=== PATIENT | female | born 1980 ===

== ENCOUNTER 2020-02-16 23:34 | Emergency (ER) | payer OTHER, SELFPAY ==
[2020-02-16 23:42] VITALS: BP 147/86; PULSE 96; RESP 16; TEMP 36.8; O2SAT 98; BMI 24.7
--- NOTE | 2020-02-16 23:52 | XR_ITS ---
WS: [id number] EXAM: AP CHEST: PORTABLE UPRIGHT DATE OF EXAM: 02/17/2020, 0021 hours COMPARISON: NONE HISTORY: Patient is 39 years old with chest pain, cough, fever at home. FINDINGS: The cardiac silhouette is normal in size. The mediastinal contours are normal. The pulmonary vas cularity is normal. The lungs are clear of infiltrate. There is no effusion or pneumothorax. No ac milton bony abnormality is seen. XR/XR chest 1V portable [id number] IMPRESSION: No acute pulmonary disease.
--- NOTE | 2020-02-16 23:53 | ECG_ITS ---
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 Measurements Intervals Termo Rate: 81 P: 79 SD: 152 QRS: 81 QRSD: 76 T: 50 QT: 340 QTc: 397 Interpretive Statements SINUS RHYTHM No previous ECG available for comparison Electronically Signed On 02-17-2020 18:32:13 CDT by hCetan Suazo M.D. [id number]
--- NOTE | 2020-02-17 00:11 | W.ED.CHESTPA ---
HPI - Chest Pain General: Chief Complaint: Chest Pain Stated Complaint: COIVID SYMPTOMS Time Seen by Provider: 02/16/20 23:52 History of Present Illness: HPI narrative: Patient states that she has been around positive COVID coworkers. She has been tested for times been negative but says she has had some muscle aches cramps some tightness in her chest when her muscles ache. Says she is running fever at home. She denies any loss of taste or smell. She is a smoker. She denies a cough shortness of breath. MD complaint: chest discomfort Prior episodes: No Onset: other Pain location: lateral Pain radiation: none Severity: mild Quality: tightness Context: other (COVID exposure) Associated symptoms: Reports fever(s) and other (Muscle aches); Deny abdominal pain, dyspnea, nausea or vomiting Treatment prior to arrival: none Review of Systems Const: Reports: fever(s) and body aches Eyes: Denies: change in vision or blurry vision ENMT: Denies: throat pain or nasal congestion Card: Reports: chest pain; Denies: dyspnea on exertion Resp: Denies: dyspnea, productive cough or non-productive cough GI: Denies: abdominal pain, nausea or vomiting Musc: Denies: extremity pain Skin/Breast: Denies: rash Neuro: Denies: headache(s) Psych: Denies: anxiety or depression Gabino/Lymph: Denies: easy bruising Physical Exam Const: COMMON NORMALS: no acute distress, average body habitus and patient oriented x3 HENMT: COMMON NORMALS: normocephalic HEAD & SCALP: normal to inspection and normocephalic FACE & SINUS: normal facial exam Eye: COMMON NORMALS: conjunctivae normal GENERAL EYE: appearance normal, both eyes and all related structures CONJUNCTIVA: Yes conjunctivae normal Neck/C-Spine: COMMON NORMALS: no JVD Chest: COMMONS NORMALS: normal inspection of the chest Resp: COMMON NORMALS: normal respiratory effort and clear to auscultation bilaterally AUSCULTATION: clear to auscultation bilaterally Cardio: COMMON NORMALS: no JVD, regular rate and regular rhythm RATE: regular rate RHYTHM: regular rhythm GI: COMMON NORMALS: Normal to inspection, nondistended, normoactive bowel sounds present Extremity: COMMON NORMALS: normal to inspection and full ROM Neuro: COMMON NORMALS: patient oriented x3 Course Vital Signs: Vital signs: Vital Signs Temperature 98.3 F 02/16/20 23:42 Pulse Rate 96 02/16/20 23:42 Respiratory Rate 16 02/16/20 23:42 Blood Pressure 147/86 02/16/20 23:42 Pulse Oximetry 98 02/16/20 23:42 Coding Level of Care Code ED Community Education Specialist for Ciro Teixeira
[2020-02-17 00:28] VITALS: BP 118/78; PULSE 80; RESP 16; O2SAT 98
[2020-02-17 00:36] LABS: Basophils # 0.1 10^3/uL (0.0-0.1); Eosinophils # 0.7 10^3/uL (0.0-0.8); Eosinophils % 9.1 %; Hematocrit 40.7 % (37.0-47.0); Hemoglobin 13.6 g/dL (11.5-15.3); Lymphocytes # 2.5 10^3/uL (0.8-4.8); Lymphocytes % 31.3 %; Mean Corpuscular HGB Conc 33.4 g/dL (30.0-36.0); Mean Corpuscular Hemoglobin 31.5 pg (28.0-34.0); Mean Corpuscular Volume 94.2 fL (81-99); Mean Platelet Volume 9.9 fL (7.4-10.4); Monocytes # 0.7 10^3/uL (0.2-0.9); Monocytes % 9.3 %; Neutrophils # 3.89 10^3/uL (1.8-7.7); Nucleated Red Blood Cells % 0 %; Platelet Count 240 10^3/cmm (130-400); Red Blood Count 4.32 10^6/uL (4.1-5.3); Red Cell Distribution Width 11.6 % (12.1-15.1); White Blood Count 7.9 10^3/uL (4.0-10.0)
[2020-02-17 00:57] LABS: Alanine Aminotransferase 12 U/L (0-33); Albumin Level 4.6 g/dL (3.5-5.2); Alkaline Phosphatase 60 IU/L (35-105); Anion Gap 12.9 (5-19); Aspartate Amino Transferase 13 U/L (0-32); Blood Urea Nitrogen 17 mg/dL (6-20); C Reactive Protein 0.3 mg/L (0.0-4.9); Calcium 8.6 mg/dL (8.5-10.5); Carbon Dioxide 23 mmol/L (22-29); Chloride 104 mmol/L (98-107); Globulin 2.6 g/dL (1.3-4.6); Glomerular Filtration Rate 92.7 mL/min (90-130); Glucose 94 mg/dL (65-115); Osmolality Calculated 278 mOsm/kg (285-295); Potassium 3.9 mmol/L (3.5-5.1); Sodium 136 mmol/L (136-145); Total Bilirubin 0.3 mg/dL (0.15-1.2); Total Protein 7.2 g/dL (6.6-8.7)
[2020-02-17 00:58] LABS: Lactic Sepsis W/Reflex 0.7 mmol/L (0.5-2.2)
[2020-02-17 00:59] LABS: Troponin(5th) Baseline 6 ng/L (0-10)
[2020-02-17 01:16] LABS: SARS Covid-2 Antigen Negative (Negative)
[2020-02-17 01:27] LABS: Influenza A by IFA Negative (Negative); Influenza B by IFA Negative (Negative)
[2020-02-17 01:38] VITALS: BP 126/74; PULSE 64; RESP 18; O2SAT 99
== END 2020-02-17 01:39 | disposition home or self-care (01) ==
PROVIDERS: Emergency Provider Nurse Practitioner Family; PCP Family Medicine
DX: R07.9 Chest pain, unspecified (principal); R50.9 Fever, unspecified
CPT/HCPCS: 12345; 71045; 80053; 83605; 84484; 85025; 86140; 87040; 87426; 87804; 93005; 99283; 99284

== ENCOUNTER → 2022-05-10 16:20 | Outpatient (BNVA) | payer SELFPAY | PROVIDERS: PCP Family Medicine; Visit Provider Registered Nurse Neonatal Intensive Care | DX: N39.0 Urinary tract infection, site not specified (principal) | CPT/HCPCS: 81000; 87491; 87591; 87661 ==

== ENCOUNTER 2024-03-09 12:25 | Inpatient (IN) | payer SELFPAY ==
[2024-03-09 12:28] VITALS: BP 136/98; PULSE 87; RESP 16; TEMP 36.8; O2SAT 100; BMI 25.0
--- NOTE | 2024-03-09 12:56 | PC.PHAR ---
pt is from [facility]
--- NOTE | 2024-03-09 13:03 | ED.C_ITS ---
HPI - Psych 2 General: Chief Complaint: Psychiatric Symptoms Stated Complaint: SI Time Seen by Provider: 03/09/24 12:28 Source: patient Mode of arrival: ambulatory Limitations: no limitations History of Present Illness: Patient is a 43-year-old female presents to ED today with a complaint of depression and suicidal ideations. According to triage note, patient has had 10 mg of hydrocodone, methamphetamine, marijuana, and for alcohol shooters today. She reportedly went to [facility] to check herself in for drug rehab and they turned her away because she was actively under the influence. They did do some type of suicide assessment screening and when she tested positive, they recommended she come to the emergency department. Patient states she has a longstanding history of depression and suicidal ideations. She does feel like her suicide thoughts are worsening. She has no specific plan. She does report a previous suicide attempt when she was much younger. MD complaint: suicidal ideation and feels depressed Onset (ago): week(s) Duration: constant History of same: Yes Relieving factors: none Exacerbating factors: drug use Context: recent drug abuse Associated psychiatric symptoms: depression and suicidal ideation Associated symptoms: Reports depression and suicidal ideation; Deny auditory hallucinations, visual hallucinations or homicidal ideation Treatments prior to arrival: none If self harm: admits thoughts of self harm Related Data Home Medications Medication Instructions Recorded Confirmed No Known Home Medications 03/09/24 03/09/24 Allergies Allergy/AdvReac Type Severity Reaction Status Date / Time No Known Allergies Allergy Verified 05/10/22 15:45 Review of Systems 2 Const: Denies: fever(s) or chills Card: Denies: chest pain, palpitations, lightheadedness or syncope Resp: Denies: dyspnea GI: Denies: abdominal pain, nausea, vomiting or diarrhea Skin/Breast: Denies: rash Neuro: Denies: headache(s) Psych: Reports: anxiety, depression and suicidal ideation; Denies: visual hallucinations, auditory hallucinations or homicidal ideation PFS ED 2 PFSH: Social History Smoking and tobacco/nicotine status: current every day tobacco/nicotine user Physical Exam 2 Const: COMMON NORMALS: patient oriented x3, no limitations, alert and well nourished GENERAL APPEARANCE: cooperative, well kempt and disheveled Resp: COMMON NORMALS: normal respiratory effort and clear to auscultation bilaterally AUSCULTATION: clear to auscultation bilaterally Cardio: COMMON NORMALS: regular rate and regular rhythm RATE: regular rate RHYTHM: regular rhythm Extremity: GENERAL: Yes normal exam except as noted Neuro: COMMON NORMALS: patient oriented x3 SENSORIUM/ORIENTATION: Yes alert Psych: COMMON NORMALS: Normal thought process present, cooperative, normal affect, speech normal, activity/motor behavior normal, denies hallucinations and denies homicidal ideation APPEARANCE: Yes grossly normal and Yes well kempt ATTITUDE: Yes calm ACTIVITY/MOTOR BEHAVIOR: Yes appropriate eye contact and No psychomotor agitation SPEECH: Yes normal speech MOOD & AFFECT: Yes depressed mood THOUGHT PROCESS: Normal thought process present THOUGHT CONTENT: Yes Normal thought content present ATTENTION/CONCENTRATION: Yes attention grossly intact and Yes concentration grossly intact M YAIMA/COGNITION: Yes memory grossly intact and Yes cognition grossly intact I NSIGHT: Fair insight present (Psych) JUDGEMENT: Fair judgement present (Psych) Course 2 Consultations: Consultation #1: Dr. Trujillo-accepts admission to NPU Vital Signs: Vital signs: Vital Signs Temperature 98.2 F 03/09/24 12:28 Pulse Rate 87 03/09/24 12:28 Respiratory Rate 16 03/09/24 12:28 Blood Pressure 136/98 03/09/24 12:28 Pulse Oximetry 100 03/09/24 12:28 Oxygen Delivery Me thod Room Air 03/09/24 12:28 [facility] - Psych Medical Decision Making Patient will be admitted to NPU to Dr. Trujillo for treatment of her depression and suicidal ideations as well as polysubstance abuse. Differential Diagnosis Likely suicidal ideation and depression Medical Records I reviewed the patient's medical records. Lab Data I reviewed the patient's lab results. 03/09/24 13:18 03/09/24 13:18 Laboratory Results WBC 5.10 10^3/uL (3.29-11.43) 03/09/24 13:18 RBC 4.53 10^6/uL (3.85-5.65) 03/09/24 13:18 Hgb 14.10 g/dL (11.27-16.99) 03/09/24 13:18 Hct 42.8 % (36-47) 03/09/24 13:18 MCV 94.5 fl (85-98) 03/09/24 13:18 MCH 31.1 pg (27-33) 03/09/24 13:18 MCHC 32.9 g/dL (30-55) 03/09/24 13:18 RDW 12.1 % (12.1-15.1) 03/09/24 13:18 Plt Count 258 10^3/cmm (157-399) 03/09/24 13:18 MPV 10.1 fL (7.4-10.4) 03/09/24 13:18 Neut % (Auto) 49.1 % 03/09/24 13:18 Lymph % (Auto) 30.8 % 03/09/24 13:18 Sebastian % (Auto) 11.2 % 03/09/24 13:18 Eos % (Auto) 7.3 % 03/09/24 13:18 Baso % (Auto) 1.2 % 03/09/24 13:18 Neut # (Auto) 2.51 10^3/uL (1.8-7.7) 03/09/24 13:18 Lymph # (Auto) 1.6 10^3/uL (0.8-4.8) 03/09/24 13:18 Sebastian # (Auto) 0.6 10^3/uL (0.2-0.9) 03/09/24 13:18 Eos # (Auto) 0.4 10^3/uL (0.0-0.8) 03/09/24 13:18 Baso # (Auto) 0.1 10^3/uL (0.0-0.1) 03/09/24 13:18 Nucleated RBC % (auto) 0 % 03/09/24 13:18 Nucleated RBCs # 0.0 /100WBC 03/09/24 13:18 Sodium 142 mmol/L (136-145) 03/09/24 13:18 Potassium 4.4 mmol/L (3.5-5.1) 03/09/24 13:18 Chloride 103 mmol/L (98-107) 03/09/24 13:18 Carbon Dioxide 29 mmol/L (22-29) 03/09/24 13:18 Anion Gap 14.4 (5-19) 03/09/24 13:18 BUN 14 mg/dL (6-20) 03/09/24 13:18 Creatinine 0.8 mg/dL (0.5-0.9) 03/09/24 13:18 GFR Calculation 77.9 mL/min (90-130) L 03/09/24 13:18 Glucose 99 mg/dL (65-115) 03/09/24 13:18 Calculated Osmolality 295 mOsm/kg (285-295) 03/09/24 13:18 Calcium 9.3 mg/dL (8.5-10.5) 03/09/24 13:18 Total Bilirubin 0.3 mg/dL (0.15-1.2) 03/09/24 13:18 AST 23 U/L (0-32) 03/09/24 13:18 ALT 16 U/L (0-33) 03/09/24 13:18 Alkaline Phosphatase 84 U/L (35-105) 03/09/24 13:18 Total Protein 7.1 g/dL (6.6-8.7) 03/09/24 13:18 Albumin 4.5 g/dL (3.5-5.2) 03/09/24 13:18 Globulin 2.6 g/dL (1.3-4.6) 03/09/24 13:18 HCG, Qual Negative (Negative) 03/09/24 13:18 Salicylates 1.3 mg/dL (3-10) L 03/09/24 13:18 Urine Opiates Screen Positive ng/mL (Negative) H 03/09/24 12:53 Acetaminophen < 5.0 ug/mL (10-30) L 03/09/24 13:18 Ur Barbiturates Screen Negative ng/mL (Negative) 03/09/24 12:53 Ur Phencyclidine Scrn Negative ng/mL (Negative) 03/09/24 12:53 Ur Amphetamines Screen Positive ng/mL (Negative) H 03/09/24 12:53 U Benzodiazepines Scrn Negative ng/mL (Negative) 03/09/24 12:53 Urine Cocaine Screen Negative ng/mL (Negative) 03/09/24 12:53 U Marijuana (THC) Screen Positive ng/mL (Negative) H 03/09/24 12:53 Ethyl Alcohol < 10 mg/dL (0-10) 03/09/24 13:18 No radiology studies performed this visit Discharge Plan Discharge Patient Disposition: Admitted As Inpatient Clinical Impression: Suicidal ideation, Polysubstance abuse Condition: Stable Coding Level of Care Code ED Brim And Crown Presser for Ciro Teixeira
[2024-03-09 13:26] LABS: Amphetamines Screen Urine Positive (Negative); Barbiturates Screen Urine Negative (Negative); Benzodiazepines Screen Urine Negative (Negative); Cocaine Screen Urine Negative (Negative); Opiate Screen Urine Positive (Negative); PCP Screen Urine Negative (Negative); THC Screen Urine Positive (Negative)
[2024-03-09 13:38] LABS: Basophils # 0.1 10^3/uL (0.0-0.1); Basophils % 1.2 %; Eosinophils # 0.4 10^3/uL (0.0-0.8); Eosinophils % 7.3 %; Hematocrit 42.8 % (36-47); Lymphocytes # 1.6 10^3/uL (0.8-4.8); Lymphocytes % 30.8 %; Mean Corpuscular HGB Conc 32.9 g/dL (30-55); Mean Corpuscular Hemoglobin 31.1 pg (27-33); Mean Corpuscular Volume 94.5 fl (85-98); Mean Platelet Volume 10.1 fL (7.4-10.4); Monocytes # 0.6 10^3/uL (0.2-0.9); Monocytes % 11.2 %; Neutrophils # 2.51 10^3/uL (1.8-7.7); Neutrophils % 49.1 %; Nucleated Red Blood Cells % 0 %; Platelet Count 258 10^3/cmm (157-399); Red Blood Count 4.53 10^6/uL (3.85-5.65); Red Cell Distribution Width 12.1 % (12.1-15.1)
[2024-03-09 13:53] LABS: HCG, Serum Qual Negative (Negative)
[2024-03-09 14:00] LABS: Alanine Aminotransferase 16 U/L (0-33); Albumin Level 4.5 g/dL (3.5-5.2); Alkaline Phosphatase 84 U/L (35-105); Anion Gap 14.4 (5-19); Aspartate Amino Transferase 23 U/L (0-32); Blood Urea Nitrogen 14 mg/dL (6-20); Calcium 9.3 mg/dL (8.5-10.5); Carbon Dioxide 29 mmol/L (22-29); Chloride 103 mmol/L (98-107); Creatinine Clr Calc Pharmacy 87.0054; Globulin 2.6 g/dL (1.3-4.6); Glomerular Filtration Rate 77.9 mL/min (90-130); Glucose 99 mg/dL (65-115); Osmolality Calculated 295 mOsm/kg (285-295); Potassium 4.4 mmol/L (3.5-5.1); Salicylate 1.3 mg/dL (3-10); Sodium 142 mmol/L (136-145); Total Bilirubin 0.3 mg/dL (0.15-1.2); Total Protein 7.1 g/dL (6.6-8.7)
[2024-03-09 14:09] LABS: Acetaminophen < 5.0 ug/mL (10-30); Alcohol Level < 10 mg/dL (0-10)
[2024-03-09 17:00] VITALS: BP 127/89; PULSE 77; O2SAT 98
[2024-03-09] MEDS: LORazepam 1 mg Tablet PO (17:22)
[2024-03-09 18:04] VITALS: BP 137/92; PULSE 95; O2SAT 97
[2024-03-09 22:16] VITALS: BP 127/87; PULSE 72; RESP 16; O2SAT 98
[2024-03-09 22:29] VITALS: BP 127/87; PULSE 72; RESP 16; O2SAT 98
[2024-03-09 23:55] VITALS: BP 114/81; PULSE 82; RESP 16; TEMP 36.6; O2SAT 96
[2024-03-10 03:00] VITALS: BP 109/71; PULSE 72; RESP 16; O2SAT 100
--- NOTE | 2024-03-10 05:59 | P.NPUHP_ITS ---
Providers/Chief Complaint 2 Admitting Physician: Pernell Trujillo MD Primary Care Provider: Amish Vasquez MD Chief Complaint: SI HPI NPU History of Present Illness Abby Hummel is a 43 year old female who presented to the emergency department with the following report: Chief Complaint: Psychiatric Symptoms Stated Complaint: SI Time Seen by Provider: 03/09/24 12:28 Source: patient Mode of arrival: ambulatory Limitations: no limitations History of Present Illness: Patient is a 43-year-old female presents to ED today with a complaint of depression and suicidal ideations. According to triage note, patient has had 10 mg of hydrocodone, methamphetamine, marijuana, and for alcohol shooters today. She reportedly went to [facility] to check herself in for drug rehab and they turned her away because she was actively under the influence. They did do some type of suicide assessment screening and when she tested positive, they recommended she come to the emergency department. Patient states she has a longstanding history of depression and suicidal ideations. She does feel like her suicide thoughts are worsening. She has no specific plan. She does report a previous suicide attempt when she was much younger. MD complaint: suicidal ideation and feels depressed Onset (ago): week(s) Duration: constant History of same: Yes Relieving factors: none Exacerbating factors: drug use Context: recent drug abuse Associated psychiatric symptoms: depression and suicidal ideation Associated symptoms: Reports depression and suicidal ideation; Deny auditory hallucinations, visual hallucinations or homicidal ideation Treatments prior to arrival: none If self harm: admits thoughts of self harm. She was admitted to the neuropsychiatric unit for definitive treatment of those issues. She is unknown to [facility] psychiatric services through inpatient or outpatient services. She presented reporting significant difficulty with addiction and being turned away from [facility] secondary to positive drug screen as well as presenting intoxicated. Her drug screen here was positive for opiates, amphetamines and THC/cannabis. She had received some benzodiazepines prior to being evaluated by this scientific writer and was quite lethargic during the interview and unable to really provide historical information. She did endorse active addiction and wanting to change her situation and being frustrated because she went to [facility] thinking that would be definitive assistance and they were unable to manage her in the condition she presented. Attempted to discuss with her what we can provide in relation to that as possibly a bridge back to [facility]. She did endorse ongoing depression and suicidal thoughts and reporting that she just cannot take it anymore. She did report a commitment to going to some kind of sober living treatment in addition to being open to medication management for her mental health challenges. We discussed that being multiple options for depression and anxiety that would be nonhabit-forming and given her level of somnolence we could discuss in the morning. Meds NPU Home Medications Medication Instructions Recorded Confirmed Last Taken Type No Known Home Medications 03/09/24 03/09/24 Unknown History Allergies Allergy/AdvReac Type Severity Reaction Status Date / Time No Known Allergies Allergy Verified 05/10/22 15:45 PFSH NPU 2 PFSH: Social History Smoking and tobacco/nicotine status: current every day tobacco/nicotine user Mental Status Exam 2 MSE Comments: This is an overweight white female with hospital scrubs on with limited grooming and eye contact.? No abnormal movements except for psychomotor retardation.? Limited cooperation with exam in moderate distress.? Speech was decreased rate and volume. Mood described as depressed and anxious, affect subdued. Thought process linear, thought content: Patient denied suicidal or homicidal ideation, there were no delusions reported or noted, she denied auditory or visual hallucinations. ? Attention and concentration were limited and memory was limited, but none were formally tested.? She is alert and oriented x person and place.? Insight and judgment limited, impulse control is impaired.? Vitals/I&O/Wt Last Vital Signs Temp 97.9 F 03/09/24 23:55 Pulse 72 03/10/24 03:00 Resp 16 03/10/24 03:00 BP 109/71 03/10/24 03:00 Pulse Ox 100 03/10/24 03:00 O2 Del Method Room Air 03/10/24 03:00 Weight last 48 hrs Weight 68.039 kg Data NPU 03/09/24 13:18 03/09/24 13:18 A&P Assessment and plan (1) Suicidal ideation: (2) Polysubstance abuse: (3) Depression: (4) Anxiety: Plan This is a 43-year-old white female who is a very poor historian at the time of evaluation but suggested a long history of addiction as well as significant depression and anxiety who was trying to get into [facility] to treat her active addiction but was advised she needed to be evaluated before her intoxication prior to being possibly excepted by [facility]. 1.? Will consider starting medications for depression and anxiety in the morning. 2.? Continue every 15 minute checks for safety. 3.? Encourage individual, group and milieu therapies. 4.? Encourage sober living treatment after discharge at the highest level of care to which she is willing to commit. Involuntary Hold Information 2 96 Hour Hold: 96 Hour Involuntary Admission: No Attestations NPU 2 Medical Necessity Statement*: Inpatient hospitalization is medically necessary and the clinically appropriate intervention at this time. We will monitor medication to make changes as indicated. Patient will be in the hospital for over two midnights. Likely length of stay 4-6 days. Coding Level of Care Code Acute Code for [facility] Diagnoses Suicidal ideation R45.851 Polysubstance abuse F19.10 Depression F32.A Anxiety F41.9
[2024-03-10 07:00] VITALS: BP 132/88; PULSE 95; RESP 18; O2SAT 97
[2024-03-10] MEDS: hyDROXYzine 25 mg Capsule 50 MG PO (08:32)
[2024-03-10] MEDS: thiamine 100 mg Tablet PO (08:33)
[2024-03-10] MEDS: folic acid 1 mg Tablet PO (08:33)
[2024-03-10] MEDS: multivitamin therapeutic Tablet 1 TAB PO (08:33)
[2024-03-10] MEDS: nicotine 21 mg Patch 1 PATCH TRANSDERMA (09:52)
[2024-03-10] MEDS: LORazepam 2 mg Tablet PO ×2 (09:53→15:08)
--- NOTE | 2024-03-10 09:53 | PC.NURSE ---
Scored patient 10 on CIWA. Administered ativan 2mg PO per protocol.
[2024-03-10 11:00] VITALS: BP 114/75; PULSE 91; RESP 18; TEMP 37.2; O2SAT 98
[2024-03-10 15:00] VITALS: BP 109/75; PULSE 65; RESP 16; TEMP 37; O2SAT 99
--- NOTE | 2024-03-10 15:08 | PC.NURSE ---
11 on CiWA. Administered ativan 2mg PO
[2024-03-10 19:00] VITALS: RESP 15
[2024-03-10 22:54] VITALS: BP 108/74; PULSE 93; RESP 18; TEMP 36.4; O2SAT 98
[2024-03-11] MEDS: hyDROXYzine 25 mg Capsule 50 MG PO ×2 (00:11→11:15)
[2024-03-11] MEDS: trazodone 50 mg Tablet PO (00:11)
[2024-03-11 03:00] VITALS: BP 100/66; PULSE 81; RESP 16; O2SAT 98
[2024-03-11 07:00] VITALS: BP 103/73; PULSE 92; RESP 18; O2SAT 100
--- NOTE | 2024-03-11 08:11 | PC.NURSE ---
calm during assessment. Patient denies SI, HI, AVH, and withdrawal symptoms. Patient appears more rested this morning.
--- NOTE | 2024-03-11 08:13 | PC.NURSE ---
calm during assessment. Patient denies SI, HI, AVH, and withdrawal symptoms. Patient appears more rested this morning.
[2024-03-11] MEDS: thiamine 100 mg Tablet PO (09:31)
[2024-03-11] MEDS: folic acid 1 mg Tablet PO (09:31)
[2024-03-11] MEDS: multivitamin therapeutic Tablet 1 TAB PO (09:31)
[2024-03-11] MEDS: acetaminophen 325 mg Tablet 650 MG PO (09:31)
[2024-03-11] MEDS: nicotine 21 mg Patch 1 PATCH TRANSDERMA (09:31)
[2024-03-11 11:00] VITALS: BP 96/67; PULSE 84; RESP 16; O2SAT 100
--- NOTE | 2024-03-11 11:16 | PC.NURSE ---
Addendum entered by Susana Art LPN 03/11/24 12:46: PRN MED EFFECTIVE CURRENTLY NO FURTHER C/O ANXIETY Original Note: PRN VISTARIL 50 MG GIVEN PO PER PT C/O STATED ANXIETY
[2024-03-11] MEDS: OLANZapine 5 mg ODT PO (14:58)
[2024-03-11 15:00] VITALS: BP 91/56; PULSE 86; RESP 17; O2SAT 99
[2024-03-11 19:00] VITALS: BP 95/63; PULSE 78; RESP 16; TEMP 36.3; O2SAT 96
--- NOTE | 2024-03-11 19:08 | P.NPUPN_ITS ---
Subjective NPU 2 Subjective: Patient presented today continuing to be solely focused on discharge. She continued to report that she would be fine and very much downplayed the addiction issues. She denied any interest in considering medications and reports that she works and just wants to get back to being home with her family and working. We discussed the social work team being in tomorrow and they would work on appropriate referrals for outpatient services. We discussed that we need to do what is right but we cannot force her to do any follow-up. We discussed the likelihood of discharge tomorrow after obtaining resources and figuring out that there are no safety concerns by obtaining collateral information. Mental Status Exam 2 MSE Comments: This is an overweight white female with hospital scrubs on with limited grooming and eye contact.? No abnormal movements except for psychomotor retardation.? Limited cooperation with exam in mild to moderate distress.? Speech was decreased rate and volume. Mood described as I just want to go home, affect subdued and tearful. Thought process linear, thought content: Patient denied suicidal or homicidal ideation, there were no delusions reported or noted, she denied auditory or visual hallucinations. ? Attention and concentration were intact and memory was mostly appearing reliable, but none were formally tested.? She is alert and oriented x 3.? Insight and judgment limited, impulse control is impaired.? Vitals/I&O/Wt Last Vital Signs Temp 97.5 F L 03/10/24 22:54 Pulse 86 03/11/24 15:00 Resp 17 03/11/24 15:00 BP 91/56 03/11/24 15:00 Pulse Ox 99 03/11/24 15:00 O2 Del Method Room Air 03/11/24 03:00 Weight last 48 hrs Weight 68.039 kg Data NPU 03/09/24 13:18 03/09/24 13:18 A&P Assessment and plan (1) Suicidal ideation: (2) Polysubstance abuse: (3) Depression: (4) Anxiety: Plan This is a 43-year-old white female who is a very poor historian at the time of evaluation but suggested a long history of addiction as well as significant depression and anxiety who was trying to get into [facility] to treat her active addiction but was advised she needed to be evaluated before her intoxication prior to being possibly excepted by [facility]. 1.? Will consider starting medications for depression and anxiety in the morning. 2.? Continue every 15 minute checks for safety. 3.? Encourage individual, group and milieu therapies. 4.? Encourage sober living treatment after discharge at the highest level of care to which she is willing to commit. 5. Patient continues to deny issues of safety. We will work with the social work team tomorrow to help her have access to appropriate resources as well as evaluate any issues of safety in the home prior to likely discharge given that she is not interested in medication or engaging in any inpatient services. Involuntary Hold Information 2 96 Hour Hold: 96 Hour Involuntary Admission: No Attestations NPU 2 Medical Necessity Statement*: Inpatient hospitalization is medically necessary and the clinically appropriate intervention at this time. We will monitor medication to make changes as indicated. Likely length of stay 1-3 days. Coding Level of Care Code Acute Code for g Fwd Diagnoses Suicidal ideation R45.851 Polysubstance abuse F19.10 Depression F32.A Anxiety F41.9
[2024-03-11 23:00] VITALS: BP 126/73; PULSE 75; RESP 16; TEMP 36.3; O2SAT 100
[2024-03-12] MEDS: hyDROXYzine 25 mg Capsule 50 MG PO ×2 (01:04→09:33)
[2024-03-12] MEDS: trazodone 50 mg Tablet PO (01:05)
[2024-03-12 03:00] VITALS: BP 99/64; PULSE 61; RESP 16; O2SAT 94
[2024-03-12 07:00] VITALS: BP 113/75; PULSE 60; RESP 17; TEMP 36.4; O2SAT 100
[2024-03-12] MEDS: thiamine 100 mg Tablet PO (08:15)
[2024-03-12] MEDS: multivitamin therapeutic Tablet 1 TAB PO (08:16)
[2024-03-12] MEDS: folic acid 1 mg Tablet PO (08:16)
[2024-03-12] MEDS: nicotine 21 mg Patch 1 PATCH TRANSDERMA (08:18)
[2024-03-12 11:00] VITALS: BP 115/74; PULSE 90; RESP 17; TEMP 36.6; O2SAT 100
--- NOTE | 2024-03-12 15:59 | P.NPUDS_ITS ---
Diagnoses at Discharge Discharge Diagnosis (1) Suicidal ideation: Status: Acute (2) Polysubstance abuse: Status: Acute (3) Depression: Status: Acute (4) Anxiety: Status: Acute Reason for Visit Reason for Visit: SI Involuntary Hold Information 96 Hour Hold: 96 Hour Involuntary Admission: No Mental Status Exam MSE Comments: This is an overweight white female with hospital scrubs on with limited grooming and eye contact.? No abnormal movements except for psychomotor retardation.? Limited cooperation with exam in mild to moderate distress.? Speech was decreased rate and volume. Mood described as I just want to go home, affect subdued and tearful. Thought process linear, thought content: Patient denied suicidal or homicidal ideation, there were no delusions reported or noted, she denied auditory or visual hallucinations. ? Attention and concentration were intact and memory was mostly appearing reliable, but none were formally tested.? She is alert and oriented x 3.? Insight and judgment limited, impulse control is impaired.? Discharge Data Studies Completed and Pending: Laboratory Results WBC 5.10 10^3/uL (3.2 9-11.43) 03/09/24 13:18 RBC 4.53 10^6/uL (3.8 5-5.65) 03/09/24 13:18 Hgb 14.10 g/dL (11.27 -16.99) 03/09/24 13:18 Hct 42.8 % (36-47) 03/09/24 13:18 MCV 94.5 fl (85-98) 03/09/24 13:18 MCH 31.1 pg (27-33) 03/09/24 13:18 MCHC 32.9 g/dL (30-55) 03/09/24 13:18 RDW 12.1 % (12.1-15.1 ) 03/09/24 13:18 Plt Count 258 10^3/cmm (157 -399) 03/09/24 13:18 MPV 10.1 fL (7.4-10.4 ) 03/09/24 13:18 Neut % (Auto) 49.1 % 03/09/24 13:18 Lymph % (Auto) 30.8 % 03/09/24 13:18 [place] % (Auto) 11.2 % 03/09/24 13:18 Eos % (Auto) 7.3 % 03/09/24 13:18 Baso % (Auto) 1.2 % 03/09/24 13:18 Neut # (Auto) 2.51 10^3/uL (1.8 -7.7) 03/09/24 13:18 Lymph # (Auto) 1.6 10^3/uL (0.8- 4.8) 03/09/24 13:18 [place] # (Auto) 0.6 10^3/uL (0.2- 0.9) 03/09/24 13:18 Eos # (Auto) 0.4 10^3/uL (0.0- 0.8) 03/09/24 13:18 Baso # (Auto) 0.1 10^3/uL (0.0- 0.1) 03/09/24 13:18 Nucleated RBC % (a uto) 0 % 03/09/24 13:18 Nucleated RBCs # 0.0 /100WBC 03/09/24 13:18 Sodium 142 mmol/L (136-1 45) 03/09/24 13:18 Potassium 4.4 mmol/L (3.5-5 .1) 03/09/24 13:18 Chloride 103 mmol/L (98-10 7) 03/09/24 13:18 Carbon Dioxide 29 mmol/L (22-29) 03/09/24 13:18 Anion Gap 14.4 (5-19) 03/09/24 13:18 BUN 14 mg/dL (6-20) 03/09/24 13:18 Creatinine 0.8 mg/dL (0.5-0. 9) 03/09/24 13:18 GFR Calculation 77.9 mL/min (90-1 30) L 03/09/24 13:18 Glucose 99 mg/dL (65-115) 03/09/24 13:18 Calculated Osmolal ity 295 mOsm/kg (285- 295) 03/09/24 13:18 Calcium 9.3 mg/dL (8.5-10 .5) 03/09/24 13:18 Total Bilirubin 0.3 mg/dL (0.15-1 .2) 03/09/24 13:18 AST 23 U/L (0-32) 03/09/24 13:18 ALT 16 U/L (0-33) 03/09/24 13:18 Alkaline Phosphata se 84 U/L (35-105) 03/09/24 13:18 Total Protein 7.1 g/dL (6.6-8.7 ) 03/09/24 13:18 Albumin 4.5 g/dL (3.5-5.2 ) 03/09/24 13:18 Globulin 2.6 g/dL (1.3-4.6 ) 03/09/24 13:18 HCG, Qual Negative (Negati ve) 03/09/24 13:18 Salicylates 1.3 mg/dL (3-10) L 03/09/24 13:18 Urine Opiates Scre en Positive ng/mL (N egative) H 03/09/24 12:53 Acetaminophen < 5.0 ug/mL (10-3 0) L 03/09/24 13:18 Ur Barbiturates Sc reen Negative ng/mL (N egative) 03/09/24 12:53 Ur Phencyclidine S crn Negative ng/mL (N egative) 03/09/24 12:53 Ur Amphetamines Sc reen Positive ng/mL (N egative) H 03/09/24 12:53 U Benzodiazepines Scrn Negative ng/mL (N egative) 03/09/24 12:53 Urine Cocaine Scre en Negative ng/mL (N egative) 03/09/24 12:53 U Marijuana (THC) Screen Positive ng/mL (N egative) H 03/09/24 12:53 Ethyl Alcohol < 10 mg/dL (0-10) 03/09/24 13:18 Vitals: Last Vital Signs Temp 98 F 03/12/24 11:00 Pulse 90 03/12/24 11:00 Resp 17 03/12/24 11:00 BP 115/74 03/12/24 11:00 Pulse Ox 100 03/12/24 11:00 O2 Del Method Room Air 03/11/24 03:00 Discharge Plan Discharge Patient Disposition: Home Condition: Stable Prescriptions: New Vitamin B-1 (mononitrate) 100 mg Tablet 100 mg PO DAILY 30 Days Qty: 30 1RF Discharge Orders: Discharge Order (Routine); Ordered 03/12/24 Ordered By: Pernell Trujillo Referrals: [facility] [Other] - 7-10 days Amish Vasquez MD [Primary Care Provider] - Discharge Diet: Regular Discharge Activity: Resume usual activity Patient Instructions: Opioid Safety Discharge Attestations NPU Time Spent in Discharge Care*: less than 30 min Specific Discharge Activities: Specific discharge activities: educating patient, discussing with home health care case manager/social workers/dc planners, documenting/other paperwork and evaluating patient/reviewing data Coding Level of Care Code Acute Code for Chg Fwd Diagnoses Suicidal ideation R45.851 Polysubstance abuse F19.10 Depression F32.A Anxiety F41.9
[2024-03-12 16:08] VITALS: BP 115/74; PULSE 90; RESP 17; TEMP 36.6; O2SAT 100
== END 2024-03-12 17:38 | disposition home or self-care (01) | DRG 881 ==
LOC: ER 15:49 → NP 17:36
PROVIDERS: Admitting Provider Psychiatry & Neurology Psychiatry; Emergency Provider Physician Assistant; PCP Family Medicine; Visit Provider Psychiatry & Neurology Psychiatry
DX: F32.A Depression, unspecified (principal); R45.851 Suicidal ideations; F19.10 Other psychoactive substance abuse, uncomplicated; F17.200 Nicotine dependence, unspecified, uncomplicated; F41.9 Anxiety disorder, unspecified
CPT/HCPCS: 36415; 80053; 80306; 80307; 84703; 85025; 96372; 97150; 97165; 99285; J3411

== ENCOUNTER → 2024-11-23 09:13 | Outpatient (BNVA) | payer OTHER, SELFPAY | PROVIDERS: Visit Provider Nurse Practitioner | DX: F32.A Depression, unspecified (principal); F41.9 Anxiety disorder, unspecified; F19.10 Other psychoactive substance abuse, uncomplicated; Z20.2 Contact with and (suspected) exposure to infections with a predominantly sexual mode of transmission; R32 Unspecified urinary incontinence; R82.90 Unspecified abnormal findings in urine | CPT/HCPCS: 80053; 81000; 82306; 82607; 82746; 84443; 85025; 86803; 87077; 87086; 87184; 87491; 87591; 87806 ==

== ENCOUNTER → 2024-12-20 10:39 | Outpatient (BNVA) | payer MEDICAID, SELFPAY | PROVIDERS: PCP Nurse Practitioner; Visit Provider Nurse Practitioner | DX: N39.0 Urinary tract infection, site not specified (principal) | CPT/HCPCS: 81000; 87086 ==